=== PATIENT | female | born 2000 | race Caucasian/White ===

== ENCOUNTER 2023-02-17 13:24 | Emergency (ER) | payer BC, MEDICARE, SELFPAY ==
[2023-02-17 13:30] VITALS: BP 98/62; PULSE 73; RESP 18; TEMP 36.9; O2SAT 99; BMI 20.4
--- NOTE | 2023-02-17 14:46 | ED_ITS ---
HPI - General Adult General Time Seen by Provider: 14:46 Date Seen: 02/17/23 Chief complaint: Abdominal Pain Stated complaint: Abdominal pain Time Seen by Provider: 02/17/23 14:18 Source: patient Mode of arrival: ambulatory Limitations: no limitations History of Present Illness HPI narrative: Patient is a 22-year-old female who was seen Saturday at [address] when she had significant right upper quadrant abdominal pain. She had a CT scan, laboratory studies, urinalysis. She had a negative test. It was determined she had a possible mild UTI and started on Macrodantin. Patient also continues to have right upper quadrant pain. She has had no fevers rigors chills change in color or bowel or bladder, the patient denies any rigors. She had a CT scan as mention that I was able to review the report and it was unremarkable. She continues to have the right upper quadrant pain. It is not quite as severe as it was Saturday but continues and she is concerned about this. Patient reports she has generally been quite healthy, has not taken medications. Denies . Related Data Home Medications Medication Instructions Recorded Confirmed No Known Home Medications 02/17/23 02/17/23 Allergies Allergy/AdvReac Type Severity Reaction Status Date / Time No Known Drug Allergies Allergy Verified 02/17/23 13:34 Review of Systems Status of ROS: Reports: 6 or more systems reviewed and unremarkable except as noted in History and below [facility] Social History Smoking Status: Never smoker Do you use any of these nicotine containing products: None How often do you have a drink containing alcohol: never AUDIT-C Alcohol total score: 0 Non-prescribed substance use: denies use Exam Narrative: Exam Narrative: Objective: Vital signs are unremarkable patient is afebrile In general she is alert orient x3 HEENT is unremarkable no scleral icterus neck is supple Abdomen she has mild right upper quadrant tenderness to palpation no rebound no palpable mass. Extremities are no edema neurologic nonfocal good peripheral perfusion noted skin warm and dry. Const: Vital Signs, click to edit/add: Vital Signs - 24 hr 02/17/23 13:30 02/17/23 16:09 Temperature 98.5 F Pulse Rate [Right Pulse Oximeter] 73 67 Respiratory Rate 18 18 Blood Pressure [Ri ght Upper Arm] 98/62 95/61 Pulse Oximetry 99 99 Oxygen Delivery Me thod Room Air Room Air Course Vital Signs Vital signs: Initial Vital Signs Temperature 98.5 F 02/17/23 13:30 Temperature Source Temporal Artery Scan 02/17/23 13:30 Pulse Rate 73 02/17/23 13:30 Respiratory Rate 18 02/17/23 13:30 Blood Pressure 98/62 02/17/23 13:30 Blood Pressure Mean 74 02/17/23 13:30 Blood Pressure Position Sitting 02/17/23 13:30 Pulse Oximetry 99 02/17/23 13:30 Oxygen Delivery Method Room Air 02/17/23 13:30 Vital Signs Temperature 98.5 F 02/17/23 13:30 Pulse Rate 73 02/17/23 13:30 Respiratory Rate 18 02/17/23 13:30 Blood Pressure 98/62 02/17/23 13:30 Pulse Oximetry 99 02/17/23 13:30 Oxygen Delivery Method Room Air 02/17/23 13:30 Temperature 98.5 F 02/17/23 13:30 Pulse Rate 67 02/17/23 16:09 Respiratory Rate 18 02/17/23 16:09 Blood Pressure 95/61 02/17/23 16:09 Pulse Oximetry 99 02/17/23 16:09 Oxygen Delivery Method Room Air 02/17/23 16:09 Medical Decision Making MDM Narrative Medical decision making narrative: 22-year-old female with persistent right upper quadrant abdominal pain. Patient I think at this point we should repeat her labs at been 48 hours since her laboratory studies. She continues to have right upper quadrant abdominal pain and I think a right upper quadrant ultrasound be very helpful to determine if she has cholelithiasis or perhaps a cystic duct stone. She had a negative CT scan, and negative laboratory studies, and even her urinalysis looks pretty benign. I think it be reasonable to do an IV IV fluid and then disposition pending her ultrasound and lab findings. She and her significant other were comfortable plan. Addendum 3:12 p.m.: Patient declined an IV or pain medications. Addendum 4:12 p.m. the patient's lab studies look unremarkable, her CT scan from before was unremarkable and her ultrasound today is unremarkable. I wonder if she has a little bit of duodenitis I would recommend she try Prilosec daily once or twice a day for a few days and see primary care in 3-4 days. May need EGD. I would recommend she follow up with primary care in the next 48 hours or so. Lab Data Labs: Lab Results 02/17/23 Range/Units 15:20 WBC 4.19 L (4.50-11.00) K/uL RBC 4.84 (4.00-5.20) m/uL Hgb 12.8 (12.0-16.0) gm/dL Hct 39.3 (33.0-51.0) % MCV 81 (80-100) fL MCH 26 (26-34) pg MCHC 33 (32-36) gm/dL RDW Coeff of Diallo 13.8 (11.5-15.5) % Plt Count 211 (140-440) K/uL Neut % (Auto) 72.3 H (42.0-72.0) % Lymph % (Auto) 17.4 L (20-44) % Charlton % (Auto) 8.6 (0.0-11.0) % Eos % (Auto) 1.0 (0.0-7.0) % Baso % (Auto) 0.5 (0.0-3.0) % Neut # (Auto) 3.00 (1.7-7.0) K/uL Lymph # (Auto) 0.70 L (0.90-2.90) K/uL Charlton # (Auto) 0.40 (0.00-0.90) K/UL Eos # (Auto) 0.00 (0.00-0.50) K/uL Baso # (Auto) 0.00 (0.00-0.30) K/uL Abs Immat Gran (auto) 0.00 (0.00-0.30) K/uL Imm/Tot Granulo (auto) 0.2 % Sodium 141 (135-149) mmol/L Potassium 3.7 (3.6-5.1) mmol/L Chloride 108 (96-114) mmol/L Carbon Dioxide 22 (20-32) mmol/L Anion Gap 11 (7-15) mEq/L BUN 6 (5-24) mg/dL Creatinine 0.6 (0.5-1.5) mg/dL Estimated Creat Clear 147.80 Estimated GFR 132 ml/min Glucose 86 (60-115) mg/dL Calcium 9.1 (8.4-10.6) mg/dL Total Bilirubin 0.6 (0.1-1.5) mg/dL Direct Bilirubin 0.0 (0.0-0.5) mg/dL AST 31 (12-35) U/L ALT 14 (4-35) U/L Alkaline Phosphatase 43 (40-150) U/L C-Reactive Protein 0.8 (0.5-1.0) mg/dL Total Protein 8.4 H (6.0-8.3) g/dL Albumin 5.1 H (3.3-5.0) g/dL Amylase 94 H (18-89) U/L HCG, Qual Negative (Negative) Discharge Plan Discharge Clinical Impression: Right upper quadrant abdominal pain Patient Disposition: Home w/ Parent or Adult Condition: Stable Additional Instructions: prilosec daily, light diet, recheck primary care 2-3 days. may need upper endoscopy. Activity Level: Light activity Discharge Diet: Clear Liquid Diet Detail: Advance diet as tolerated Prescriptions: No Action No Known Home Medications Stand Alone Forms: [employer] Info Instructions
--- NOTE | 2023-02-17 14:49 | CRLHL7_ITS ---
For Patients: As a result of the Cures Act, medical imaging exams and procedure reports are released immediately into your electronic medical record. You may view this report before your referring provider. If you have questions, please contact your health care provider. HISTORY: Right upper quadrant abdominal pain. TECHNIQUE: Limited abdominal ultrasound. COMPARISON: CT 02/15/2023. FINDINGS: There is no focal liver lesion. Liver echogenicity within normal limits. Liver contour smooth. No biliary ductal dilatation. The extrahepatic bile duct measures 3 mm which is within normal limits. The gallbladder is normal. Right kidney unremarkable. Pancreatic tail is incompletely visualized though the visualized pancreas is unremarkable. IMPRESSION: 1. No identified cause of the patient`s pain. 2. Normal gallbladder. 3. No biliary ductal dilatation. Dictated by Keith Cuevas MD @ 02/17/2023 6:36:43 PM Dictated by: Keith Cuevas MD @ 02/17/2023 18:36:47 (Electronically Signed)
[2023-02-17 15:28] LABS: Basophils Percent Auto 0.5 % (0.0-3.0); Hematocrit 39.3 % (33.0-51.0); Hemoglobin* 12.8 gm/dL (12.0-16.0); Immature Granulocytes Pct Auto 0.2 %; Lymphocytes Percent Auto 17.4 % (20-44); Mean Corpuscular HGB Conc 33 gm/dL (32-36); Mean Corpuscular Hemoglobin 26 pg (26-34); Mean Corpuscular Volume 81 fL (80-100); Monocytes Percent Auto 8.6 % (0.0-11.0); Neutrophils Percent Auto 72.3 % (42.0-72.0); Platelet Count* 211 K/uL (140-440); RDW Coefficient of Variation % 13.8 % (11.5-15.5); Red Blood Count 4.84 m/uL (4.00-5.20); White Blood Count* 4.19 K/uL (4.50-11.00)
[2023-02-17 15:31] LABS: Slide Review Reflex No
[2023-02-17 15:42] LABS: Albumin* 5.1 g/dL (3.3-5.0); Chloride* 108 mmol/L (96-114); Sodium* 141 mmol/L (135-149)
[2023-02-17 15:43] LABS: Potassium* 3.7 mmol/L (3.6-5.1)
[2023-02-17 15:45] LABS: Amylase* 94 U/L (18-89); Creatinine* 0.6 mg/dL (0.5-1.5); Estimated Glomerular Filt Rate 132 ml/min
[2023-02-17 15:46] LABS: Alanine Aminotransferase* 14 U/L (4-35); Alkaline Phosphatase* 43 U/L (40-150); Anion Gap 11 mEq/L (7-15); Aspartate Amino Transferase* 31 U/L (12-35); Bilirubin Total* 0.6 mg/dL (0.1-1.5); Blood Urea Nitrogen* 6 mg/dL (5-24); Calcium* 9.1 mg/dL (8.4-10.6); Carbon Dioxide* 22 mmol/L (20-32); Glucose* 86 mg/dL (60-115); Total Protein* 8.4 g/dL (6.0-8.3)
[2023-02-17 15:49] LABS: C Reactive Protein* 0.8 mg/dL (0.5-1.0)
[2023-02-17 15:55] LABS: HCG Qualitative Serum* Negative (Negative)
[2023-02-17 16:09] VITALS: BP 95/61; PULSE 67; RESP 18; O2SAT 99
== END 2023-02-17 16:59 | disposition home or self-care (01) ==
PROVIDERS: Emergency Provider Family Medicine
DX: R10.11 Right upper quadrant pain (principal)
CPT/HCPCS: 36415; 76705; 80048; 80076; 82150; 84703; 85025; 86140; 96374; 99284